=== PATIENT | female | born 1995 | race Native Hawaiian/Other Pacific Islander ===

== ENCOUNTER 2023-02-25 03:23 | Emergency (ER) | payer OTHER ==
[~2023-02-25] VITALS: Ht 157.4 cm; Wt 71.3 kg
[2023-02-25] MEDS ORDERED: LACTATED RINGERS 1,000 ML 1,000 ML IV ONE (03:45)
--- NOTE | 2023-02-25 03:53 | ED Back Pain ---
General Chief Complaint: Back Problems Stated Complaint: BACK PX X 6 DAYS Source of Information: Patient History of Present Illness Date Seen by Provider: Feb 25, 2023 Time Seen by Provider: 03:45 Initial Comments PT ARRIVES VIA POV FROM HOME C/O RIGHT FLANK PAIN X 6 DAYS, PAIN RADIATING TO RUQ TODAY PAIN IS CONSTANT, NOTHING WORSENS OR IMPROVES PAIN TRIED TYLENOL WITHOUT RELIEF, TRIED IBUPROFEN AT 1800 TONIGHT WITHOUT RELIEF NO NAUSEA/VOMITING, BUT HAS HAD DECREASED APPETITE, FEELS FULL EASILY, AND FEELS BLOATED HAD NORMAL BM TODAY NO KNOWN FEVER/SWEATS/CHILLS HAS HAD URINARY FREQUENCY THIS WEEK HAS NOT SOUGHT CARE UNTIL TONIGHT. LMP 02/15/23. NORMAL. NO CONTROL NO HISTORY OF SIMILAR NO ABDOMINAL SURGERIES OR GI PROBLEMS PT HAS HISTORY OF SEIZURES, BUT DOES NOT TAKE ANY MEDICATIONS FOR IT, OR MEDICATIONS FOR ANYTHING. PT SMOKED 1 1/2 PPD, NOW VAPES NICOTINE, DENIES ALCOHOL OR DRUG USE Other Comments PCP: [facility] [place] and Home Medications Allergies Coded Allergies: Penicillins (Verified Allergy, Unknown, 02/25/23) codeine (Verified Allergy, Unknown, 02/25/23) Patient Home Medication List Home Medication List Reviewed: Yes Review of Systems Constitutional: no symptoms reported Respiratory: no symptoms reported Cardiovascular: no symptoms reported Gastrointestinal: see HPI, abdominal pain, loss of appetite Genitourinary: see HPI, frequency LMP: Feb 15, 2023 Control/STD Prophylaxis: None Musculoskeletal: see HPI, back pain Skin: no symptoms reported Psychiatric/Neurological: No Symptoms Reported Past Obisxzg-Qliiqn-Eejssk Hx Patient Social History Tobacco Use?: Yes Tobacco type used: Cigarettes Smoking Status: Former Smoker Use of E-Cig and/or Vaping dev: Yes E-Cig or Vaping type used: Nicotine Use of E-Cig and/or Vaping [place]ron: Current Everyday User Substance use?: No Alcohol Use?: No Past Medical History Surgeries: Yes Tonsillectomy Respiratory: No Cardiac: No Neurological: Yes (NO SEIZURE MEDICATIONS) Seizure Disorder : No Reproductive Disorders: No Genitourinary: No Gastrointestinal: No Musculoskeletal: No Endocrine: No HEENT: Yes (S/P TONSILLECTOMY) Tonsilitis Cancer: No Psychosocial: No Integumentary: No Blood Disorders: No Family Medical History SOCIAL HISTORY: -SMOKED 1 1/2 PPD, QUIT SMOKING AND NOW VAPES NICOTINE -ETOH DENIES USE -DRUGS DENIES USE Physical Exam Vital Signs Vital Signs - First Documented 02/25/23 02/25/23 03:32 06:12 Temp 37.8 Pulse 105 Resp 18 B/P (MAP) 123/77 (92) Pulse Ox 99 O2 Delivery Room Air Capillary Refill : Height, Weight, BMI Height: '" Weight: lbs. oz. kg; BMI Method: General Appearance: No Apparent Distress, WD/WN, Other (PLEASANT, COOPERATIVE, DOES NOT APPEAR ILL OR TO BE IN ANY DISCOMFORT OR DISTRESS. WALKS UPRIGHT AND MOVES WITHOUT DIFFICULTY) HEENT: PERRL/EOMI, Other (POOR DENTITION) Neck: Normal Inspection Cardiovascular: Regular Rate, Rhythm, No Murmur Respiratory: Normal Breath Sounds, No Accessory Muscle Use, No Respiratory Distress Gastrointestinal: No Organomegaly, No Pulsatile Mass, Soft; No Distended, No Guarding, No Hernia, No Mass, No Rebound; Tenderness (RIGHT FLANK AND DIFFUSE RIGHT SIDED ABDOMINAL TENDERNESS) Back: No Vertebral Tenderness, CVA Tenderness (R) Extremity: Normal Inspection Neurologic/Psychiatric: Alert, Oriented x3, No Motor/Sensory Deficits, Normal Mood/Affect, 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 Norm as Tested Skin: Normal Color, Warm/Dry; No Rash Progress/Results/Core Measures Results/Orders Lab Results Laboratory Tests Test 02/25/23 03:49 02/25/23 04:00 Range/Units Urine Color YELLOW Urine Clarity CLOUDY Urine pH 5.5 5-9 Urine Specific [place] 1.020 1.016-1.022 Urine Protein 2+ H NEGATIVE Urine Glucose (UA) NEGATIVE NEGATIVE Urine Ketones 1+ H NEGATIVE Urine Nitrite NEGATIVE NEGATIVE Urine Bilirubin 1+ H NEGATIVE Urine Urobilinogen 2.0 < = 1.0 MG/DL Urine Leukocyte Esterase 1+ H NEGATIVE Urine RBC (Auto) TRACE H NEGATIVE Urine RBC 2-5 H /HPF Urine WBC 10-25 H /HPF Urine Squamous Epithelial Cells 10-25 H /HPF Urine Crystals PRESENT H /LPF Urine Amorphous Sediment FEW JOSE M URATES H /LPF Urine Bacteria MODERATE H /HPF Urine Casts NONE /LPF Urine Mucus SMALL H /LPF Urine Culture Indicated YES Urine Opiates Screen NEGATIVE NEGATIVE Urine Oxycodone Screen NEGATIVE NEGATIVE Urine Methadone Screen NEGATIVE NEGATIVE Urine Barbiturates Screen NEGATIVE NEGATIVE Ur Tricyclic Antidepressants Screen NEGATIVE NEGATIVE Urine Phencyclidine Screen NEGATIVE NEGATIVE Urine Amphetamines Screen NEGATIVE NEGATIVE Urine Methamphetamines Screen NEGATIVE NEGATIVE Urine Benzodiazepines Screen NEGATIVE NEGATIVE Urine Cocaine Screen NEGATIVE NEGATIVE Urine Cannabinoids Screen POSITIVE H NEGATIVE White Blood Count 10.5 4.3-11.0 10^3/uL Red Blood Count 3.93 3.80-5.11 10^6/uL Hemoglobin 11.4 L 11.5-16.0 g/dL Hematocrit 34 L 35-52 % Mean Corpuscular Volume 88 80-99 fL Mean Corpuscular Hemoglobin 29 25-34 pg Mean Corpuscular Hemoglobin Concent 33 32-36 g/dL Red Cell Distribution Width 13.7 10.0-14.5 % Platelet Count 338 130-400 10^3/uL Mean Platelet Volume 10.1 9.0-12.2 fL Immature Granulocyte % (Auto) 0 % Neutrophils (%) (Auto) 73 42-75 % Lymphocytes (%) (Auto) 18 12-44 % Monocytes (%) (Auto) 7 0-12 % Eosinophils (%) (Auto) 0 0-10 % Basophils (%) (Auto) 0 0-10 % Neutrophils # (Auto) 7.7 1.8-7.8 10^3/uL Lymphocytes # (Auto) 1.9 1.0-4.0 10^3/uL Monocytes # (Auto) 0.8 0.0-1.0 10^3/uL Eosinophils # (Auto) 0.0 0.0-0.3 10^3/uL Basophils # (Auto) 0.0 0.0-0.1 10^3/uL Immature Granulocyte # (Auto) 0.0 0.0-0.1 10^3/uL Sodium Level 136 135-145 MMOL/L Potassium Level 3.0 L 3.6-5.0 MMOL/L Chloride Level 103 98-107 MMOL/L Carbon Dioxide Level 23 21-32 MMOL/L Anion Gap 10 5-14 MMOL/L Blood Urea Nitrogen 8 7-18 MG/DL Creatinine 0.83 0.60-1.30 MG/DL Estimat Glomerular Filtration Rate 99 BUN/Creatinine Ratio 10 Glucose Level 135 H 70-105 MG/DL Lactic Acid Level 1.58 0.50-2.00 MMOL/L Calcium Level 9.1 8.5-10.1 MG/DL Corrected Calcium 9.2 8.5-10.1 MG/DL Total Bilirubin 0.5 0.1-1.0 MG/DL Aspartate Amino Transf (AST/SGOT) 24 5-34 U/L Alanine Aminotransferase (ALT/SGPT) 28 0-55 U/L Alkaline Phosphatase 76 40-136 U/L Total Protein 7.4 6.4-8.2 GM/DL Albumin 3.9 3.2-4.5 GM/DL Amylase Level 19 L 25-125 U/L Lipase 25 8-78 U/L Serum Test, Qualitative NEGATIVE NEGATIVE My Orders Orders - DIANNE HARRIS DO Urine Bedside (02/25/23 03:44) Ua Culture If Indicated (02/25/23 03:44) Ed Iv/Invasive Line Start (02/25/23 03:45) Monitor-Rhythm Ecg Trace Only (02/25/23 03:45) Cbc And Automated Diff (02/25/23 03:45) Comprehensive Metabolic Panel (02/25/23 03:45) Lactic Acid Analyzer (02/25/23 03:45) Ed Iv/Invasive Line Start (02/25/23 03:45) Ed Iv/Invasive Line Start (02/25/23 03:45) Lactated Ringers 1,000 Ml (Lactated Ring (02/25/23 03:45) Amylase (02/25/23 04:05) Drug Screen Stat (Urine) (02/25/23 04:05) Lipase (02/25/23 04:05) Urine Culture (02/25/23 03:49) Hcg,Qualitative Serum (02/25/23 04:11) Ceftriaxone Iv/Im (Ceftriaxone Iv/Im) (02/25/23 04:15) Ketorolac Injection (Ketorolac Injection (02/25/23 04:45) Ct Abd/Pelvis Wo(Kidney Stone) (02/25/23 04:35) Abdomen/Kub 1view (02/25/23 04:35) Medications Given in ED Vital Signs/I&O 02/25/23 02/25/23 03:32 06:12 Temp 37.8 Pulse 105 77 Resp 18 16 B/P (MAP) 123/77 (92) 108/67 Pulse Ox 99 O2 Delivery Room Air Room Air Progress Progress Note : Progress Note VITALS ON ARRIVAL: TEMP GIVEN: -IV FLUIDS -ROCEPHIN -TORADOL LABS: -CBC NORMAL WITH WBC 10.5 -CMP WITH K 3.0, OTHERWISE NORMAL -AMYLASE/LIPASE NORMAL -LACTIC ACID NORMAL -UA WITH 2+ PROTEIN, 1+ KETONES, 1+ LEUKOCYTES, 2-5 RBC, 10-25 WBC, MODERATE BACTERIA -HCG NEGATIVE 0610--PT DOES NOT WANT TO WAIT FOR CT RESULTS, SIGNING OUT AMA Diagnostic Imaging Comments KUB CT ABDOMEN / PELVIS-- Reviewed: Reviewed by Me Departure Impression Primary Impression: Left against medical advice Disposition: 07 AGAINST MEDICAL ADVICE Condition: Against Medical Advice Departure-Patient Inst. Decision time for Depature: 06:12 Referrals: NO,LOCAL PHYSICIAN (PCP/Family) Primary Care Physician Patient Instructions: Leaving Against Medical Advice Add. Discharge Instructions: All discharge instructions reviewed with patient and/or family. Voiced understanding. DIANNE HARRIS DO Feb 25, 2023 03:53
[2023-02-25 04:09] LABS: BACTERIA,URINE MODERATE /HPF; BILIRUBIN,URINE 1+ (NEGATIVE); CLARITY,URINE CLOUDY; COLOR,URINE YELLOW; GLUCOSE, URINE (UA) NEGATIVE (NEGATIVE); KETONES,URINE 1+ (NEGATIVE); LEUKOCYTE ESTERASE ,URINE 1+ (NEGATIVE); NITRITE,URINE NEGATIVE (NEGATIVE); PH,URINE 5.5 (5-9); PROTEIN,URINE 2+ (NEGATIVE)
[2023-02-25 04:10] LABS: AMORPHOUS SEDIMENT,UR FEW AMOR URATES /LPF
[2023-02-25] MEDS ORDERED: cefTRIAXone IV/IM 1,000 MG in NS (IVPB) 50 ML 50 ML IV ONE (04:15)
[2023-02-25 04:18] LABS: BASOPHILS % (AUTO) 0 % (0-10); EOSINOPHILS % (AUTO) 0 % (0-10); HEMATOCRIT 34 % (35-52); HEMOGLOBIN 11.4 g/dL (11.5-16.0); LYMPHOCYTES # (AUTO) 1.9 10^3/uL (1.0-4.0); LYMPHOCYTES % (AUTO) 18 % (12-44); MEAN CORPUSCULAR HEMOGLOBIN 29 pg (25-34); MEAN CORPUSCULAR HGB CONC 33 g/dL (32-36); MEAN CORPUSCULAR VOLUME 88 fL (80-99); MEAN PLATELET VOLUME 10.1 fL (9.0-12.2); MONOCYTES # (AUTO) 0.8 10^3/uL (0.0-1.0); MONOCYTES % (AUTO) 7 % (0-12); NEUTROPHILS # (AUTO) 7.7 10^3/uL (1.8-7.8); NEUTROPHILS % (AUTO) 73 % (42-75); PLATELET COUNT 338 10^3/uL (130-400); WHITE BLOOD COUNT 10.5 10^3/uL (4.3-11.0)
[2023-02-25 04:30] LABS: ALBUMIN 3.9 GM/DL (3.2-4.5)
[2023-02-25 04:32] LABS: CALCIUM 9.1 MG/DL (8.5-10.1)
[2023-02-25 04:33] LABS: TOTAL PROTEIN 7.4 GM/DL (6.4-8.2)
[2023-02-25 04:35] LABS: BILIRUBIN,TOTAL 0.5 MG/DL (0.1-1.0)
[2023-02-25 04:36] LABS: CREATININE SERUM 0.83 MG/DL (0.60-1.30)
[2023-02-25] MEDS ORDERED: KETOROLAC INJ 30 MG/ML VIAL IVP ONE (04:45)
[2023-02-25 06:12] VITALS: BP 108/67
--- NOTE | 2023-02-25 06:25 | Diagnostic Imaging Report ---
PROCEDURE: CT urinary tract, rule out kidney stone. TECHNIQUE: Multiple contiguous axial images were obtained through the abdomen and pelvis without the use of intravenous contrast. Auto Exposure Controls were utilized during the CT exam to meet ALARA standards for radiation dose reduction. INDICATION: Abdominal pain COMPARISON: None FINDINGS: Lung bases are clear. The heart is normal in size. There is no pericardial effusion. The liver demonstrates no focal lesions on this noncontrast exam. The spleen appears normal. The pancreas is unremarkable. The adrenal glands appear normal. The kidneys demonstrate no hydronephrosis or hydroureter. No calculi are seen in the kidneys or along the expected course of the ureters. There are multiple phleboliths in the pelvis. There is no significant wall thickening appreciated of the urinary bladder. The structure thought to represent the appendix appears to be normal in caliber and containing air. There are no secondary findings of appendicitis appreciated. There is moderate stool in the colon. There are mildly redundant loops of sigmoid colon, which are gas-filled up to 4.5 cm. No distended loops of small bowel are seen to suggest obstruction. There are some fluid-filled loops of small bowel in the pelvis. There does appear to be a right ovarian cyst measuring 3 cm in size. No significant free fluid is seen. The aorta is normal in caliber. No lymphadenopathy is seen. No acute osseous abnormality is seen. IMPRESSION: 1. No acute abnormalities seen in the abdomen and pelvis. 2. A 3 cm right ovarian cyst. 3. Moderate stool in the colon. Mildly redundant and gas-filled loops of sigmoid colon. Fluid-filled loops of small bowel without distention to suggest obstruction. There is no [facility] report Dictated by: Dictated on workstation # [id number]
--- NOTE | 2023-02-25 06:42 | Diagnostic Imaging Report ---
HISTORY: Abdominal pain. COMPARISON: 02/25/2023 TECHNIQUE: Frontal view of the abdomen FINDINGS: There are multiple gas-filled loops of large and small bowel seen throughout the abdomen. No high-grade bowel distention is seen to suggest obstruction. No large collection of free air is seen. No acute osseous abnormality is seen. There are phleboliths in the pelvis. IMPRESSION:. Gas-filled loops of large and small bowel without high-grade distention to suggest obstruction. This could be a mild ileus. Dictated by: Dictated on workstation # [id number]
[2023-02-25 06:43] LABS: AMPHETAMINE SCREEN, URINE NEGATIVE (NEGATIVE); BARBITURATE SCREEN URINE NEGATIVE (NEGATIVE); CANNABINOID SCREEN, URINE POSITIVE (NEGATIVE); COCAINE SCREEN URINE NEGATIVE (NEGATIVE); METHADONE STAT NEGATIVE (NEGATIVE); OPIATE SCREEN URINE NEGATIVE (NEGATIVE); OXYCODONE STAT NEGATIVE (NEGATIVE); TRICYCLIC ANTIDEPRESSANTS SCRE NEGATIVE (NEGATIVE)
== END 2023-02-25 06:15 | disposition left against medical advice (07) ==
LOC: ER 03:29
DX: R10.84 Generalized abdominal pain (principal); R35.0 Frequency of micturition; F17.210 Nicotine dependence, cigarettes, uncomplicated; F17.290 Nicotine dependence, other tobacco product, uncomplicated
CPT/HCPCS: 36415; 74018; 74176; 80053; 80306; 81000; 82150; 83605; 83690; 84703; 85025; 87077; 87088; 87186